=== PATIENT | female | born 1955 | race African-American/Black ===

== ENCOUNTER → 2018-01-26 | Outpatient (CLI) | payer MEDICARE, MEDICAID ==
[~2018-01-26] MED LIST: ASPI-621 PO; CIPR500T3 PO; ERGO500017 PO; FURO-92 PO; LEVO175T2 PO; LEVO200T5 PO; LORA10TA62 PO; OXYC-302; OXYC-307 PO; PRED5TAB PO; SULF-169 PO; TIZA4CAP2 PO
[2018-01-26 10:32] LABS: BASOPHILS # (AUTO) 0.04 x10^3/uL (0-0.1); BASOPHILS % (AUTO) 1 % (0-1); EOSINOPHILS # (AUTO) 0.14 x10^3/uL (0-0.4); EOSINOPHILS % (AUTO) 2 % (1-7); LYMPHOCYTES # (AUTO) 1.99 x10^3/uL (1-3.4); LYMPHOCYTES % (AUTO) 34 % (22-44); MD NO; MEAN CORPUSCULAR HEMOGLOBIN 26.7 pg (27.0-34.8); MEAN CORPUSCULAR VOLUME 83.4 fL (80-100); MEAN PLATELET VOLUME 10.2 fL (7.4-10.4); MONOCYTES # (AUTO) 0.69 x10^3/uL (0.2-0.8); MONOCYTES % (AUTO) 12 % (2-9); NEUTROPHILS # (AUTO) 3.07 x10^3/uL (1.8-6.8); NEUTROPHILS % (AUTO) 52 % (42-75); PLATELET COUNT 143 x10^3/uL (130-400); RED BLOOD COUNT 4.95 x10^6/uL (3.82-5.3); RED CELL DISTRIBUTION WIDTH 16.5 % (9.6-15.2)
[2018-01-26 10:39] LABS: ALANINE AMINOTRANSFERASE 21 U/L (12-78); ANION GAP 8 mmol/L (5-15); CALCIUM 10.2 mg/dL (8.5-10.1); CHLORIDE 112 mmol/L (98-107)
[2018-01-26 10:41] LABS: ALKALINE PHOSPHATASE 137 U/L (45-117); BILIRUBIN,TOTAL 0.7 mg/dL (0.2-1.0); TOTAL PROTEIN 8.6 g/dL (6.4-8.2)
== END | disposition home or self-care (01) ==
LOC: STAR 09:09
PROVIDERS: ATTEND Urology
DX: Z01.818 Encounter for other preprocedural examination (principal); N20.0 Calculus of kidney; R00.0 Tachycardia, unspecified
CPT/HCPCS: 36415; 71045; 80053; 85025; 93005

== ENCOUNTER → 2018-01-28 | Outpatient (CLI) | payer MEDICARE, MEDICAID ==
[~2018-01-28] MED LIST changes: +OMNIPAQUE 350 MG/ML, 50 ML BOTTLE ONE
== END | disposition home or self-care (01) ==
LOC: RAD 11:52
PROVIDERS: ATTEND Urology
DX: N20.0 Calculus of kidney (principal); Z90.49 Acquired absence of other specified parts of digestive tract
CPT/HCPCS: 74410; Q9967

== ENCOUNTER 2018-05-28 10:46 | Inpatient (IN) | payer MEDICARE, MEDICAID ==
[~2018-05-28] VITALS: Ht 162.6 cm; Wt 64.3 kg
[~2018-05-28 10:46] MED LIST changes: -ASPI-621 PO; +ASPI81TA45 PO; +LEVO750T26 PO; +LEVO75TA PO; -OMNIPAQUE 350 MG/ML, 50 ML BOTTLE ONE; +TRAM50TA2 PO
[2018-05-28 11:25] VITALS: BP 111/75
[2018-05-28] MEDS ORDERED: TEMAZEPAM 30 MG CAPSULE PO PRN (12:30)
[2018-05-28] MEDS: CEFTRIAXONE PMX 1GM/50ML 50 ML IV SCH ×2 (13:00→18:33)
[2018-05-28 13:21] VITALS: BP 101/71
[2018-05-28] MEDS ORDERED: TIZANIDINE 4MG TABLET PO ONE (13:30)
[2018-05-28] MEDS ORDERED: ERGOCALCIFEROL 50,000 UNIT CAPSULE PO SCH (13:30)
[2018-05-28 13:44] LABS: ALANINE AMINOTRANSFERASE 17 U/L (12-78); ALBUMIN 3.9 g/dL (3.4-5.0); ANION GAP 10 mmol/L (5-15); CALCIUM 9.3 mg/dL (8.5-10.1); CHLORIDE 111 mmol/L (98-107)
[2018-05-28 13:47] LABS: ALKALINE PHOSPHATASE 145 U/L (45-117); BILIRUBIN,TOTAL 0.8 mg/dL (0.2-1.0); TOTAL PROTEIN 8.8 g/dL (6.4-8.2)
[2018-05-28 14:08] LABS: BASOPHILS # (AUTO) 0.13 x10^3/uL (0-0.1); BASOPHILS % (AUTO) 2 % (0-1); EOSINOPHILS # (AUTO) 0.24 x10^3/uL (0-0.4); EOSINOPHILS % (AUTO) 4 % (1-7); LYMPHOCYTES # (AUTO) 1.85 x10^3/uL (1-3.4); LYMPHOCYTES % (AUTO) 28 % (22-44); MD SCAN; MEAN CORPUSCULAR HEMOGLOBIN 25.2 pg (27.0-34.8); MEAN CORPUSCULAR HGB CONC 31.7 g/dL (32.4-35.8); MEAN CORPUSCULAR VOLUME 79.6 fL (80-100); MEAN PLATELET VOLUME 9.6 fL (7.4-10.4); MONOCYTES # (AUTO) 0.85 x10^3/uL (0.2-0.8); MONOCYTES % (AUTO) 13 % (2-9); NEUTROPHILS # (AUTO) 3.67 x10^3/uL (1.8-6.8); NEUTROPHILS % (AUTO) 54 % (42-75); PLATELET COUNT 238 x10^3/uL (130-400); RED BLOOD COUNT 4.75 x10^6/uL (3.82-5.3)
[2018-05-28 15:30] LABS: CULTURE INDICATED? YES; MICROSCOPIC INDICATED
[2018-05-28] MEDS ORDERED: TIZANIDINE 4MG TABLET ONE (17:59)
[2018-05-28] MEDS ORDERED: OXYcodone IR 5MG TABLET ONE (18:24)
[2018-05-28] MEDS ORDERED: POTASSIUM CHLORIDE 10 MEQ in D5%-0.45% NACL 1,000 ML IV SCH (18:30)
[2018-05-28] MEDS ORDERED: OXYcodone IR 5MG TABLET PO PRN (18:30)
[2018-05-28] MEDS ORDERED: D5%-0.45% NACL 1,000 ML IV SCH (18:30)
[2018-05-28] MEDS: D5%-0.45% NACL 1,000 ML IV SCH (18:39)
[2018-05-28 20:00] VITALS: BP 105/68
[2018-05-28] MEDS: OXYcodone IR 5MG TABLET PO PRN (22:02)
[2018-05-29 00:11] VITALS: BP 118/80
[2018-05-29] MEDS: OXYcodone IR 5MG TABLET PO PRN ×3 (04:10→15:29)
[2018-05-29] MEDS: D5%-0.45% NACL 1,000 ML IV SCH ×2 (04:32→19:45)
[2018-05-29 07:15] VITALS: BP 126/76
[2018-05-29] MEDS ORDERED: ACETAMINOPHEN 500 MG TABLET PO ONE (09:30)
[2018-05-29] MEDS ORDERED: SCOPOLAMINE PATCH, 1.5MG PATCH.TD72 TD ONE (09:30)
[2018-05-29] MEDS ORDERED: GABAPENTIN 300 MG CAPSULE PO ONE (09:30)
[2018-05-29] MEDS ORDERED: SUCCINYLCHOLINE 20 MG/ML, 10ML ONE (10:02)
[2018-05-29] MEDS ORDERED: ONDANSETRON 2MG/ML, 2ML ONE (10:02)
[2018-05-29] MEDS ORDERED: PROPOFOL 10 MG/ML, 20ML ONE (10:02)
[2018-05-29] MEDS ORDERED: PHENYLEPHRINE 10 MG/ML ONE (10:02)
[2018-05-29] MEDS ORDERED: HYDROmorphone 1 MG/ML, 1ML IV PRN (11:00)
[2018-05-29] MEDS ORDERED: LABETALOL 5MG/ML, 20ML IV PRN (11:00)
[2018-05-29] MEDS ORDERED: OXYcodone 5 MG/5 ML ORAL.SOL UDC PO PRN (11:00)
[2018-05-29] MEDS ORDERED: LORazepam 2 MG/ML, 1ML IVPush PRN (11:00)
[2018-05-29] MEDS ORDERED: PROMETHAZINE 25 MG/ML, 1ML IV PRN (11:00)
[2018-05-29] MEDS ORDERED: hydrALAzine 20 MG/ML, 1ML IV PRN (11:00)
[2018-05-29] MEDS ORDERED: MEPERIDINE/PF 25MG/0.5ML IVPush PRN (11:00)
[2018-05-29] MEDS ORDERED: HALOPERIDOL 5 MG/ML IV PRN (11:00)
[2018-05-29] MEDS ORDERED: OXYcodone 5 MG/5 ML ORAL.SOL UDC ONE (12:05)
[2018-05-29] MEDS ORDERED: FENTANYL PF 100 MCG/2ML ONE (12:05)
[2018-05-29] MEDS ORDERED: OMNIPAQUE 350 MG/ML, 50 ML BOTTLE ONE (12:06)
[2018-05-29] MEDS: FENTANYL PF 100 MCG/2ML IV PRN ×3 (12:08→12:21)
[2018-05-29 14:00] VITALS: BP 88/56
[2018-05-29] MEDS: CEFTRIAXONE PMX 1GM/50ML 50 ML IV SCH (18:33)
[2018-05-29 19:09] VITALS: BP 97/56
[2018-05-30 00:07] VITALS: BP 107/60
[2018-05-30] MEDS: D5%-0.45% NACL 1,000 ML IV SCH ×2 (05:30→16:33)
[2018-05-30 07:10] VITALS: BP 104/60
[2018-05-30] MEDS: OXYcodone IR 5MG TABLET PO PRN ×2 (09:45→16:25)
[2018-05-30 14:00] VITALS: BP 118/72
[2018-05-30] MEDS: CEFTRIAXONE PMX 1GM/50ML 50 ML IV SCH (18:08)
[2018-05-30 19:28] VITALS: BP 112/61
[2018-05-31 00:28] VITALS: BP 118/61
[2018-05-31] MEDS: D5%-0.45% NACL 1,000 ML IV SCH ×3 (02:28→21:30)
[2018-05-31] MEDS: OXYcodone IR 5MG TABLET PO PRN ×2 (04:44→09:04)
[2018-05-31 05:40] LABS: ALANINE AMINOTRANSFERASE 17 U/L (12-78); ALBUMIN 2.9 g/dL (3.4-5.0); ANION GAP 8 mmol/L (5-15); CALCIUM 8.8 mg/dL (8.5-10.1); CHLORIDE 112 mmol/L (98-107); CREATININE 0.68 mg/dL (0.55-1.02)
[2018-05-31 05:42] LABS: ALKALINE PHOSPHATASE 120 U/L (45-117); BILIRUBIN,TOTAL 0.5 mg/dL (0.2-1.0)
[2018-05-31 07:40] VITALS: BP 126/74
[2018-05-31 14:15] VITALS: BP 128/70
[2018-05-31] MEDS: CEFTRIAXONE PMX 1GM/50ML 50 ML IV SCH (17:50)
[2018-05-31 19:12] VITALS: BP 96/55
[2018-06-01 00:45] VITALS: BP 120/64
[2018-06-01 05:20] LABS: ANION GAP 9 mmol/L (5-15); CALCIUM 8.1 mg/dL (8.5-10.1); CHLORIDE 113 mmol/L (98-107); CREATININE 0.69 mg/dL (0.55-1.02)
[2018-06-01] MEDS: D5%-0.45% NACL 1,000 ML IV SCH (07:49)
[2018-06-01 07:50] VITALS: BP 131/72
[2018-06-01] MEDS ORDERED: ERGOCALCIFEROL 50,000 UNIT CAPSULE PO SCH (09:00)
[2018-06-01 13:00] VITALS: BP 105/63
== END 2018-06-01 14:20 | disposition home or self-care (01) | DRG 694 ==
LOC: 4NOR 10:46
PROVIDERS: ADMIT Urology; ATTEND Urology
PROC: 05H633Z Insertion of Infusion Device into Left Subclavian Vein, Percutaneous Approach (ICD-10-PCS; principal; 2018-05-28)
PROC: B5171ZA Fluoroscopy of Left Subclavian Vein using Low Osmolar Contrast, Guidance (ICD-10-PCS; 2018-05-28)
PROC: B547ZZA Ultrasonography of Left Subclavian Vein, Guidance (ICD-10-PCS; 2018-05-28)
PROC: 0T9030Z Drainage of Right Kidney with Drainage Device, Percutaneous Approach (ICD-10-PCS; 2018-05-29)
PROC: BT1D1ZZ Fluoroscopy of Right Kidney, Ureter and Bladder using Low Osmolar Contrast (ICD-10-PCS; 2018-05-29)
PROC: 0T9B70Z Drainage of Bladder with Drainage Device, Via Natural or Artificial Opening (ICD-10-PCS; 2018-05-29)
DX: N20.0 Calculus of kidney (principal); G82.20 Paraplegia, unspecified; N39.0 Urinary tract infection, site not specified; E03.9 Hypothyroidism, unspecified; G35 Multiple sclerosis
CPT/HCPCS: 36415; 36569; 74420; 76937; 77001; 80048; 80053; 81001; 85025; 87077; 87086; G0378; J0696; J2250; J2405; J2704; J3010; J7512; Q9967; C1751; C1769; J0330; J2370

== ENCOUNTER 2018-11-16 07:42 | Emergency (ER) | payer MEDICARE, MEDICAID ==
[~2018-11-16] VITALS: Ht 162.6 cm; Wt 138.0 kg
--- NOTE | 2018-11-16 08:08 | NUR ---
PT WITH UROSTOMY. TODAY WITH BLOOD IN URINE. WITH 8/10 RIGHT FLANK PAIN HR [address] COUNSELLOR PROVIDED WITH ADDITIONAL BLANKET/CALL POWERS PLACED IN HAND TO PLACE PIV UPDATE
[2018-11-16] MEDS ORDERED: POTA15TA9 PO (08:20)
[2018-11-16] MEDS ORDERED: ALEN70TA6 PO (08:20)
[2018-11-16] MEDS ORDERED: FURO40TA6 PO (08:20)
[2018-11-16] MEDS ORDERED: LORA10TA41 PO (08:21)
[2018-11-16] MEDS ORDERED: CALC-56 PO (08:21)
[2018-11-16 09:07] LABS: MEAN CORPUSCULAR HEMOGLOBIN 26.6 pg (27.0-34.8); MEAN CORPUSCULAR HGB CONC 32.1 g/dL (32.4-35.8); MEAN CORPUSCULAR VOLUME 82.9 fL (80-100); MEAN PLATELET VOLUME 10.6 fL (7.4-10.4); PLATELET COUNT 136 x10^3/uL (130-400); RED BLOOD COUNT 4.98 x10^6/uL (3.82-5.3); RED CELL DISTRIBUTION WIDTH 16.1 % (9.6-15.2)
[2018-11-16 09:15] LABS: ALBUMIN 3.8 g/dL (3.4-5.0); ANION GAP 11 mmol/L (5-15); CALCIUM 9.1 mg/dL (8.5-10.1); CHLORIDE 110 mmol/L (98-107)
[2018-11-16 09:18] LABS: ALANINE AMINOTRANSFERASE 22 U/L (12-78); ALKALINE PHOSPHATASE 162 U/L (45-117); BILIRUBIN,TOTAL 0.6 mg/dL (0.2-1.0); CREATININE 1.09 mg/dL (0.55-1.02); TOTAL PROTEIN 8.2 g/dL (6.4-8.2)
[2018-11-16] MEDS ORDERED: MORPHINE SULFATE 4 MG/ML, 1ML ONE (09:22)
[2018-11-16] MEDS ORDERED: ONDANSETRON 2MG/ML, 2ML ONE (09:22)
[2018-11-16 09:49] LABS: MD SCAN
[2018-11-16 09:50] LABS: BASOPHILS # (AUTO) 0.05 x10^3/uL (0-0.1); BASOPHILS % (AUTO) 1 % (0-1); EOSINOPHILS # (AUTO) 0.11 x10^3/uL (0-0.4); EOSINOPHILS % (AUTO) 2 % (1-7); LYMPHOCYTES # (AUTO) 2.04 x10^3/uL (1-3.4); LYMPHOCYTES % (AUTO) 37 % (22-44); MONOCYTES # (AUTO) 0.81 x10^3/uL (0.2-0.8); MONOCYTES % (AUTO) 15 % (2-9); NEUTROPHILS # (AUTO) 2.57 x10^3/uL (1.8-6.8); NEUTROPHILS % (AUTO) 46 % (42-75)
[2018-11-16 09:55] LABS: MICROSCOPIC INDICATED
--- NOTE | 2018-11-16 09:58 | NUR ---
PATIENT REPORTS CONTINUED RIGHT FLANK PAIN AT 8/-MEDICATED PER EMAR HR REMAINS 115-125 BUT AFEBRILE UPDATED ON POC FAMILY AT BEDSIDE WILL CONTINUE TO MONITOR
[2018-11-16] MEDS ORDERED: SODIUM CHLORIDE 0.9% 1,000ML IVBOLUS ONE (10:00)
[2018-11-16] MEDS ORDERED: ONDANSETRON 2MG/ML, 2ML IVPush ONE ×2 (10:00)
[2018-11-16] MEDS ORDERED: morphine SULFATE 10 MG/ML, 1ML IVPush ONE ×2 (10:00)
[2018-11-16 10:20] LABS: CULTURE INDICATED? YES
--- NOTE | 2018-11-16 11:21 | NUR ---
WITH REASSESSMENT PATIENT REPORTS CONTINUED RIGHT FLANK-ALTHOUGH IMPROVED TO 6-TO RE-MEDICATE PROVIDER TO BEDSIDE TO EXPLAIN POC VITALS IMPROVED AND UPDATED PATIENT HELPED TURN TO RIGHT SIDE TO OFFLOAD SKIN
[2018-11-16] MEDS ORDERED: CEFDINIR 300 MG CAPSULE PO ONE (12:00)
[2018-11-16 12:38] VITALS: BP 110/77
[2018-11-16] MEDS ORDERED: CEFDINIR 300 MG CAPSULE ONE (12:44)
--- NOTE | 2018-11-16 13:19 | NUR ---
DISCHARGED HOME IN THE COMPANY OF FAMILY VIA WHEELCHAIR. AFTER PERIOD OF OBSERVATION POST ABX ADMINISTRATION. TEACH BACK ASSESSMENT FOR [facility] TO WATCH FOR SUCCESSFUL
== END 2018-11-16 13:23 | disposition home or self-care (01) ==
LOC: ED 10:08
DX: N30.01 Acute cystitis with hematuria (principal); E03.9 Hypothyroidism, unspecified; Z90.89 Acquired absence of other organs
CPT/HCPCS: 36415; 74176; 80053; 81001; 83605; 83690; 84145; 85025; 87040; 87077; 87086; 87147; 87186; 96374; 96375; 99284; J2270; J2405; J7030

== ENCOUNTER → 2020-07-27 | Outpatient (CLI) | payer MEDICARE, MEDICAID ==
[~2020-07-27] MED LIST changes: +ALEN70TA77 PO; +CALC-56 PO; +FURO40TA6 PO; +LORA-59 PO; +LORA10TA41 PO; -LORA10TA62 PO; +POTA15TA9 PO
== END | disposition home or self-care (01) ==
LOC: STAR 09:49
PROVIDERS: ATTEND Anesthesiology
DX: Z20.828 Contact with and (suspected) exposure to other viral communicable diseases (principal)
CPT/HCPCS: 87635

== ENCOUNTER 2020-08-01 07:45 | Inpatient (IN) | payer MEDICARE, MEDICAID ==
[~2020-08-01] VITALS: Ht 162.6 cm; Wt 63.0 kg
[2020-08-01 08:40] VITALS: BP 122/74
[2020-08-01] MEDS ORDERED: SODIUM CHLORIDE 0.9% 1,000 ML IV SCH (09:00)
[2020-08-01] MEDS ORDERED: CHLORHEXIDINE 15 ML UDC MM ONE (09:00)
[2020-08-01] MEDS ORDERED: LACTATED RINGERS 1,000 ML IV SCH (09:00)
[2020-08-01] MEDS ORDERED: CHLORHEXIDINE 15 ML UDC ONE (09:14)
[2020-08-01] MEDS ORDERED: LIDOCAINE 1%, 10ML ONE (09:57)
[2020-08-01] MEDS ORDERED: NALOXONE 1 MG/ML, 2ML ONE (10:05)
[2020-08-01] MEDS ORDERED: FLUMAZENIL 0.1 MG/1 ML, 5ML ONE (10:05)
[2020-08-01] MEDS ORDERED: FENTANYL PF 100 MCG/2ML ONE ×3 (10:05→17:37)
[2020-08-01] MEDS ORDERED: MIDAZOLAM 1 MG/ML, 5ML ONE ×2 (10:05)
[2020-08-01] MEDS ORDERED: VISIPAQUE 270 MG/ML, 50ML BOTTLE ONE (10:45)
[2020-08-01] MEDS ORDERED: FENTANYL PF 250 MCG/5ML ONE (13:28)
[2020-08-01] MEDS ORDERED: NITROGLYCERIN/D5W PMX 250 ML ONE (14:10)
[2020-08-01] MEDS ORDERED: HYDROCORTISONE 100 MG INJ. ONE (14:10)
[2020-08-01] MEDS ORDERED: PIPERACILLIN/TAZO/PMX 3.375GM 50 ML ONE (14:12)
[2020-08-01] MEDS ORDERED: PROPOFOL 10 MG/ML, 20ML ONE (14:19)
[2020-08-01] MEDS ORDERED: GLYCOPYRROLATE 0.2MG/1ML, 5ML ONE (14:19)
[2020-08-01] MEDS ORDERED: DEXAMETHASONE 4 MG/ML, 1ML ONE (14:19)
[2020-08-01] MEDS ORDERED: ONDANSETRON 2MG/ML, 2ML ONE (14:19)
[2020-08-01] MEDS ORDERED: ROCURONIUM 10 MG/ML,10ML ONE (14:19)
[2020-08-01] MEDS ORDERED: NEOSTIGMINE 1 MG/ML, 10ML ONE (14:19)
[2020-08-01] MEDS ORDERED: CEFTRIAXONE 1,000 MG ONE (14:19)
[2020-08-01] MEDS ORDERED: METHOCARBAMOL 1,000 MG in DEXTROSE 5% 100 ML IV PRN (14:30)
[2020-08-01] MEDS ORDERED: OXYcodone 5 MG/5 ML ORAL.SOL UDC PO PRN (14:30)
[2020-08-01] MEDS ORDERED: ONDANSETRON 2MG/ML, 2ML IVPush PRN (14:30)
[2020-08-01] MEDS ORDERED: EPHEDRINE 50 MG/ML, 1ML IVPush PRN (14:30)
[2020-08-01] MEDS ORDERED: LABETALOL 5MG/ML, 20ML IV PRN (14:30)
[2020-08-01] MEDS ORDERED: hydrALAzine 20 MG/ML, 1ML IV PRN (14:30)
[2020-08-01] MEDS ORDERED: ACETAMINOPHEN 325 MG TABLET PO PRN (14:30)
[2020-08-01] MEDS ORDERED: HYDROcodone/APAP 5/325 TABLET PO PRN (17:00)
[2020-08-01] MEDS ORDERED: ACETAMINOPHEN 650 MG/20.3 ML UDC ONE (17:10)
[2020-08-01] MEDS ORDERED: OXYcodone 5 MG/5 ML ORAL.SOL UDC ONE (17:11)
[2020-08-01] MEDS: FENTANYL PF 100 MCG/2ML IV PRN ×4 (17:25→17:47)
[2020-08-01] MEDS ORDERED: HYDROmorphone 1 MG/ML, 1ML INJ ONE ×2 (17:50→18:11)
[2020-08-01] MEDS: HYDROmorphone 1 MG/ML, 1ML INJ IVPush PRN ×4 (17:54→18:23)
[2020-08-01] MEDS ORDERED: OXYcodone/APAP 5/325MG TABLET PO PRN (18:00)
[2020-08-01 19:55] LABS: ALBUMIN 3.5 g/dL (3.4-5.0); ANION GAP 9 mmol/L (5-15); CHLORIDE 112 mmol/L (98-107); CREATININE 1.22 mg/dL (0.55-1.02)
[2020-08-01 20:29] VITALS: BP 108/71
[2020-08-01] MEDS: D5%-LACTATED RINGERS 1,000 ML IV SCH (21:09)
[2020-08-01] MEDS: CIPROFLOXACIN/PMX 400MG/200ML 200 ML IVPB SCH (21:09)
[2020-08-01] MEDS: ALENDRONATE MC SCH (23:00)
[2020-08-02 01:15] VITALS: BP 121/80
[2020-08-02 04:11] VITALS: BP 133/76
[2020-08-02] MEDS: ALENDRONATE MC SCH (07:00)
[2020-08-02] MEDS: D5%-LACTATED RINGERS 1,000 ML IV SCH (07:28)
[2020-08-02 08:00] VITALS: BP 130/62
[2020-08-02] MEDS ORDERED: LORATADINE 10 MG TABLET PO SCH (09:00)
[2020-08-02] MEDS ORDERED: CALCIUM/VITAMIN D3 250-125 TABLET PO SCH (09:00)
[2020-08-02] MEDS ORDERED: FUROSEMIDE 40 MG TABLET PO SCH (09:00)
[2020-08-02] MEDS ORDERED: POTASSIUM CHLORIDE 10 MEQ TABLET.ER PO SCH (09:00)
[2020-08-02] MEDS: CIPROFLOXACIN/PMX 400MG/200ML 200 ML IVPB SCH (09:13)
== END 2020-08-02 11:55 | disposition home health service (06) | DRG 661 ==
LOC: OUT 07:45 → ORIP 16:49 → 4NE 18:43
PROVIDERS: ADMIT Urology; ATTEND Urology
PROC: 0T768DZ Dilation of Right Ureter with Intraluminal Device, Via Natural or Artificial Opening Endoscopic (ICD-10-PCS; 2020-08-01)
PROC: BT1D1ZZ Fluoroscopy of Right Kidney, Ureter and Bladder using Low Osmolar Contrast (ICD-10-PCS; 2020-08-01)
PROC: 0TC68ZZ Extirpation of Matter from Right Ureter, Via Natural or Artificial Opening Endoscopic (ICD-10-PCS; principal; 2020-08-01 14:00)
DX: N13.2 Hydronephrosis with renal and ureteral calculous obstruction (principal); Z87.442 Personal history of urinary calculi; Z93.6 Other artificial openings of urinary tract status; Z79.899 Other long term (current) drug therapy
CPT/HCPCS: 36415; 50432; 50433; 74018; 74425; 76937; 80048; 82040; 82360; 85014; 85018; 88300; 93005; 99156; 99157; C1894; G0378; J0696; J0744; J1100; J1170; J2250; J2405; J2704; J2710; J3010; Q9966; C1727; C1751; C1758; C1769; C2617; J1720; J2310; J7030; J7120; J7121